=== PATIENT | female | born 2000 | race Caucasian/White ===

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

== ENCOUNTER → 2021-05-09 | Outpatient (CLI) | payer OTHER ==
[2021-05-10 03:06] LABS: RUBELLA AB IGG-REFLAB 1.78 index (Immune >0.99); RUBEOLA (MEASLES) IGG <13.5 AU/mL (Immune >16.4)
== END | disposition home or self-care (01) ==
LOC: LABPV 11:02
PROVIDERS: ATTEND Internal Medicine
DX: Z02.1 Encounter for pre-employment examination (principal)
CPT/HCPCS: 86706; 86735; 86762; 86765; 86787